=== PATIENT | female | born 1960 | race Caucasian/White ===

== ENCOUNTER 2019-09-01 12:18 | Emergency (ER) | payer OTHER ==
[~2019-09-01] VITALS: Ht 162.6 cm; Wt 75.3 kg
[2019-09-01] MEDS ORDERED: SERTRALINE HCL25 MG PO (12:32)
[2019-09-01] MEDS ORDERED: INDERAL LA60 MG PO (12:33)
[2019-09-01] MEDS ORDERED: IMITREX 50 MG T50 MG PO (12:33)
[2019-09-01 12:48] LABS: ABSOLUTE BASOPHILS 0.1 thou/uL (0.0-0.2); ABSOLUTE EOSINOPHILS 0.1 thou/uL (0.0-0.7); ABSOLUTE LYMPHOCYTES 2.8 thou/uL (0.8-5.3); ABSOLUTE MONOCYTES 1.3 thou/uL (0.0-1.2); ABSOLUTE NEUTROPHILS 7.3 thou/uL (1.6-8.1); BASOPHILS 0.5 %; EOSINOPHILS 0.9 %; HEMATOCRIT 41.5 % (37.0-47.0); HEMOGLOBIN 14.5 gm/dL (12.0-15.0); LYMPHOCYTES 24.3 %; MCH 30.6 pg (26.0-34.0); MCV 87.4 fL (80.0-100.0); MONOCYTES 11.6 %; MPV 8.3 fl. (7.2-11.1); NUCLEATED RBCS 0 /100WBC; PLATELET COUNT* 273 thou/uL (150-400); POLYS 62.7 %; RBC 4.75 mil/uL (4.20-5.00); RDW-CV 13.3 % (10.5-14.5); WBC 11.6 thou/uL (4.0-11.0)
[2019-09-01 12:57] LABS: APTT 26.2 Seconds (25.0-31.3); CALCIUM 9.1 mg/dL (8.5-10.1); CREATININE 0.9 mg/dL (0.6-1.3); POTASSIUM 3.6 mmol/L (3.5-5.1)
[2019-09-01 13:02] LABS: ALBUMIN 4.2 g/dL (3.4-5.0); TOTAL BILIRUBIN 0.8 mg/dL (<0.1-1.0); TOTAL PROTEIN 7.7 g/dL (6.4-8.2)
[2019-09-01] MEDS ORDERED: FLAGYL500 M1 PO (14:00)
[2019-09-01] MEDS ORDERED: PREDNISONE 20 M20 M1 PO (14:00)
[2019-09-01] MEDS ORDERED: CIPROFLOXACIN500 M1 PO (14:00)
[2019-09-01 14:03] VITALS: BP 120/81
== END 2019-09-01 14:04 | disposition home or self-care (01) ==
LOC: M.ERS 12:18
PROVIDERS: Family Medicine; Nurse Practitioner Psychiatric/Mental Health
DX: K52.9 Noninfective gastroenteritis and colitis, unspecified (principal); I10 Essential (primary) hypertension; Z88.5 Allergy status to narcotic agent; Z88.8 Allergy status to other drugs, medicaments and biological substances; Z98.890 Other specified postprocedural states; Z90.710 Acquired absence of both cervix and uterus